=== PATIENT | male | born 1985 | race Caucasian/White ===

== ENCOUNTER 2020-02-22 06:00 | Outpatient (RCR) | payer SELFPAY | END 2020-03-01 23:59 | disposition home or self-care (01) | LOC: MPT 06:00 | PROVIDERS: PCP Counselor Professional; Visit Provider Family Medicine | DX: M54.5 Low back pain (principal) | CPT/HCPCS: 97110; 97140; 97161; 97530 ==

== ENCOUNTER 2020-03-02 06:00 | Outpatient (RCR) | payer SELFPAY | END 2020-04-01 23:59 | disposition home or self-care (01) | LOC: MPT 06:00 | PROVIDERS: PCP Counselor Professional; Visit Provider Family Medicine | DX: M54.5 Low back pain (principal) | CPT/HCPCS: 97110; 97140; 97530 ==

== ENCOUNTER 2020-04-02 06:00 | Outpatient (RCR) | payer SELFPAY | END 2020-05-02 23:59 | disposition home or self-care (01) | LOC: MPT 06:00 | PROVIDERS: PCP Counselor Professional; Visit Provider Family Medicine | DX: M54.5 Low back pain (principal) | CPT/HCPCS: 97110; 97530 ==

== ENCOUNTER 2020-05-03 06:00 | Outpatient (RCR) | payer SELFPAY | END 2020-06-01 23:59 | disposition home or self-care (01) | LOC: MPT 06:00 | PROVIDERS: PCP Counselor Professional; Visit Provider Family Medicine | DX: M54.5 Low back pain (principal) | CPT/HCPCS: 97110; 97530 ==